=== PATIENT | male | born 1985 | race Caucasian/White ===

== ENCOUNTER 2019-07-20 13:26 | Emergency (ER) | payer SELFPAY ==
[~2019-07-20] VITALS: Ht 177.8 cm; Wt 86.2 kg
[2019-07-20] MEDS ORDERED: Ketorolac 30mg Inj IV ONE (13:45)
--- NOTE | 2019-07-20 14:00 | NUR ---
ED Nurse Note: Patient brought in by ambulance from street due to abdominal pain; Reports no fever, chills or diarrhea. Reports no N/V. Patient left sober living facility yesterday and + alcohol consumption. Patient awake, alert, oriented x 4. Regular, unlabored breathing noted. Patient ambulting to the room with steady gait.
[2019-07-20 14:53] LABS: APPEARANCE,URINE CLEAR; BILIRUBIN, URINE NEGATIVE (NEGATIVE); COLOR,URINE PALE YELLOW; GLUCOSE, URINE (UA) NEGATIVE (NEGATIVE); KETONES,URINE 1+ (NEGATIVE); LEUKOCYTE ESTERASE ,URINE NEGATIVE (NEGATIVE); NITRITE,URINE NEGATIVE (NEGATIVE); PH,URINE 5 (4.5-8.0); PROTEIN,URINE 2+ (NEGATIVE); UROBILINOGEN,URINE NORMAL MG/DL (0.0-1.0)
[2019-07-20 14:56] LABS: BASOPHILS % (AUTO) 1.1 % (0.0-2.0); EOSINOPHILS % (AUTO) 0.2 % (0.0-3.0); HEMATOCRIT 42.3 % (42.0-52.0); HEMOGLOBIN 14.3 G/DL (14.2-18.0); LYMPHOCYTES % (AUTO) 44.8 % (20.0-45.0); MEAN CORPUSCULAR VOLUME 85 FL (80-99); MONOCYTES % (AUTO) 4.6 % (1.0-10.0); NEUTROPHILS % (AUTO) 49.3 % (45.0-75.0); PLATELET COUNT 236 K/UL (150-450); RED CELL DISTRIBUTION WIDTH 11.5 % (11.6-14.8); WHITE BLOOD COUNT 5.9 K/UL (4.8-10.8)
[2019-07-20 15:25] LABS: ANION GAP 13 mmol/L (5-15); BLOOD UREA NITROGEN 11 mg/dL (7-18); CALCIUM 8.4 MG/DL (8.5-10.1); CARBON DIOXIDE 29 MMOL/L (21-32); CHLORIDE 105 MMOL/L (98-107); CREATININE 1.1 MG/DL (0.55-1.30); POTASSIUM 4.3 MMOL/L (3.5-5.1); SODIUM 147 MMOL/L (136-145)
[2019-07-20 15:29] LABS: ALANINE AMINOTRANSFERASE 38 U/L (12-78); ALBUMIN 4.1 G/DL (3.4-5.0); ALBUMIN/GLOBULIN RATIO 1.1 (1.0-2.7); ALKALINE PHOSPHATASE 103 U/L (46-116); ASPARTATE AMINO TRANSFERASE 31 U/L (15-37); BILIRUBIN,TOTAL 0.3 MG/DL (0.2-1.0)
--- NOTE | 2019-07-20 15:30 | NUR ---
ED Nurse Note: Patient ambulating to the restroom with steady gait. Patient requested to remove his IV.
--- NOTE | 2019-07-20 16:08 | Emergency Room Report ---
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 Patient reports that he was going to a rehab facility however started drinking again yesterday. Patient is interested in going back to rehab. Denies any suicidal homicidal ideation. Complains of minor agitation. Does admit to drinking alcohol the night before. Denies substance abuse. Denies chest pain, shortness of breath, palpitation, headache and dizziness at this time. Complains of minimal epigastric abdominal pain and nausea however denies bloody emesis. Appears to be stable with stable vital signs. Speaks in full sentences. Allergies: Coded Allergies: SULFA (SULFONAMIDE ANTIBIOTICS) (Unverified Allergy, Unknown, 07/20/19) Uncoded Allergies: SULFA (Allergy, Unknown, 07/20/19) Patient History Past Medical History: see triage record Past Surgical History: unable to obtain Pertinent Family History: unable to obtain Social History: Reports: alcohol use Immunizations: UTD Reviewed Nursing Documentation: PMH: Agreed; PSxH: Agreed Nursing Documentation-PMH Past Medical History: No History, Except For Review of Systems All Other Systems: negative except mentioned in HPI Physical Exam Vital Signs Date Time Temp Pulse Resp B/P (MAP) Pulse Ox O2 Delivery O2 Flow Rate FiO2 07/20/19 13:24 97.3 120 16 124/80 (95) 99 Room Air Sp02 EP Interpretation: reviewed, normal General Appearance: no apparent distress, alert, GCS 15, non-toxic Head: normocephalic, atraumatic Eyes: bilateral eye normal inspection, bilateral eye PERRL ENT: hearing grossly normal, normal pharynx, no angioedema, normal voice Neck: full range of motion, supple, supple/symm/no masses Respiratory: chest non-tender, lungs clear, normal breath sounds, no wheezing, speaking full sentences Cardiovascular #1: regular rate, rhythm, no edema, no murmur Cardiovascular #2: 2+ carotid (R), 2+ carotid (L), 2+ radial (R), 2+ radial (L) Gastrointestinal: normal bowel sounds, non tender, soft, non-distended, no guarding, no rebound Rectal: deferred Genitourinary: no CVA tenderness Musculoskeletal: back normal Neurologic: alert, motor strength/tone normal, oriented x3, sensory intact, responsive, speech normal Psychiatric: judgement/insight normal, mood/affect normal, anxious Skin: no rash Lymphatic: no adenopathy Medical Decision Making PA Attestation All diagnoses and treatment plans were reviewed and discussed with my supervising physician Dr. 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 Patient reports that he was going to a rehab facility however started drinking again yesterday. Patient is interested in going back to rehab. Denies any suicidal homicidal ideation. Complains of minor agitation. Does admit to drinking alcohol the night before. Denies substance abuse. Denies chest pain, shortness of breath, palpitation, headache and dizziness at this time. Complains of minimal epigastric abdominal pain and nausea however denies bloody emesis. Appears to be stable with stable vital signs. Speaks in full sentences. Ddx considered but are not limited to: generalized anxiety disorder, panic attack, depression with psychotic feature, bipolar disorder, drug overdose Vital signs: are WNL, pt. is afebrile H&PE are most consistent with: Alcohol intoxication ORDERS: Psychiatric order set, ED INTERVENTIONS: NS bolus, zofran, toradol DISCHARGE: At this time pt. is stable for d/c to home. Will provide printed patient care instructions, and any necessary prescriptions. Care plan and follow up instructions have been discussed with the patient prior to discharge. Patient status improved and makes a phone call and have his friend come pick him up and take him to rehab center. Patient agrees that he needs to stop drinking. Patient reports that he felt much better after receiving treatment today. Advised him to return to emergency room if worsening symptoms. Last Vital Signs Date Time Temp Pulse Resp B/P (MAP) Pulse Ox O2 Delivery O2 Flow Rate FiO2 07/20/19 14:24 16 Room Air 07/20/19 13:24 97.3 120 124/80 (95) 99 Disposition: HOME, SELF-CARE Condition: Stable Referrals: NOT CHOSEN IPA/,REFERRING (PCP) Patient Instructions: Alcohol Intoxication, [id number] Shel[place] Jul 20, 2019 16:08
[2019-07-20 16:20] VITALS: BP 131/78
--- NOTE | 2019-07-20 16:28 | NUR ---
ED Nurse Note: Patient is being discharged from medical care. Patient awake, alert, oriented x 4. Patient states he plans to go back to sober living facility. RN rechecked VS and patient noted to have HR 108. RN asked patient to wait in room so RN can report VS to P.A. Patient verbalized understanding of it @ 1620. Patient not found in room. Per racing secretary, Patient left ER with all his belongings after using phone. D/C instruction given by Annette.
== END 2019-07-20 16:30 | disposition home or self-care (01) ==
LOC: EDBD 13:26 → EMR 15:38
DX: F10.239 Alcohol dependence with withdrawal, unspecified (principal); Z88.2 Allergy status to sulfonamides
CPT/HCPCS: 36415; 80053; 80307; 81003; 83690; 85025; 96361; 96374; 96375; 99284; G0480; J1885; J2405; J7030; S0028